=== PATIENT | female | born 1970 | race Caucasian/White ===

== ENCOUNTER 2017-08-11 13:36 | Day surgery (SDC) | payer MEDICARE, MEDICAID ==
[~2017-08-11] VITALS: Ht 165.1 cm; Wt 47.9 kg
[2017-08-11 14:17] VITALS: Ht 165.1 cm; Wt 47.9 kg
[2017-08-11] MEDS ORDERED: POTA20PA23 PO (14:25)
[2017-08-11] MEDS ORDERED: [UNRECOGNIZED DRUG - CODE] PO (14:25)
[2017-08-11] MEDS ORDERED: FLUO40CA PO (14:25)
[2017-08-11] MEDS ORDERED: ESTR1PAT84 TD (14:25)
[2017-08-11] MEDS ORDERED: CHOL400C PO (14:25)
[2017-08-11] MEDS ORDERED: MULT-551 PO (14:25)
[2017-08-11] MEDS ORDERED: MAGN500C PO (14:25)
[2017-08-11] MEDS ORDERED: NITR-58 PO (15:57)
[2017-08-11 16:11] VITALS: BP 101/57; PULSE 66; RESP 18
[2017-08-11] MEDS ORDERED: PROPOFOL 40 ML ONE (16:26)
[2017-08-11] MEDS ORDERED: LIDOCAINE 2% (SDV) 5 ML INJ ONE (16:26)
--- NOTE | 2017-08-11 17:02 | OPPN ---
Date/Time of Note Date/Time of Note DATE: 08/11/17 TIME: 16:59 Proc Note GI Procedure Date 08/11/17 Indication: other (Diarrhea) Pre-procedure Diagnosis Post colostomy with high volume output Post-procedure Diagnosis Impression: Colostomy and ileocolonic anastomosis. Normal colonic mucosa. Random biopsies obtained. Rule out microscopic, lymphocytic or collagenous colitis. Plan: Review pathology Imodium to decrease transit Procedure Performed: Colonoscopy (With biopsies) Surgeon NEVA MUNGUIA MD See signature line Mask Former none Anesthesia Type: MAC Anesthesiologist: MADALYN ALEXANDER MD Tourniquet Time none EBL none Transfusion required none Biopsy 1: Random colon Grafts/Implants none Tubes/Drains none Complication(s) none Procedure Description After informed consent, with the patient/relatives understanding the procedure, its indications and potential risks and complications, including but not limited to: Allergic reaction, bleeding, perforation, infection, and after all pertinent questions were answered to the patient's satisfaction, the patient/ relatives signed the witnessed informed consent. Following this, premedication was administered slowly IV push under careful cardiovascular and respiratory monitoring with pulse OXIMETRY, automatic blood pressure, and regional project manager. Once the sedative effect was achieved, the patient was placed in the left lateral decubitus position, digital rectal examination was performed. The colonoscope was then introduced and advanced under visual control throughout all segments of the colon. Careful examination of the mucosa of the lower gastrointestinal tract both on insertion as well as withdrawal of the instrument disclosed the following findings: PREPARATION QUALITY: [Adequate], COLONIC MUCOSA: : The examined mucosa appears within normal limits. There is no evidence of inflammatory changes, diverticular formation, polyps or neoplasms, vascular malformation, or any other abnormality. Biopsies were obtained The instrument was then withdrawn, the patient tolerated the procedure well and was transferred out of the Endoscopy Suite awake and in good condition to continue recovery under observation. Copies To: CC: NEVA MUNGUIA MD, MORDO MD Aug 11, 2017 17:02
[2017-08-11 17:35] VITALS: BP 105/69; PULSE 68; RESP 18
== END 2017-08-11 17:07 | disposition home or self-care (01) ==
LOC: GIL 13:36
PROVIDERS: ATTEND Internal Medicine Gastroenterology
DX: R19.7 Diarrhea, unspecified (principal); I12.9 Hypertensive chronic kidney disease with stage 1 through stage 4 chronic kidney disease, or unspecified chronic kidney disease; N18.9 Chronic kidney disease, unspecified
CPT/HCPCS: 88305